=== PATIENT | male | born 1935 | race Caucasian/White ===

== ENCOUNTER 2024-01-20 19:59 | Observation (INO) ==
--- NOTE | 2024-01-20 20:13 | Emergency Department Note ---
Impression & Plan Syncope and collapse ED Provider Note HISTORY OF PRESENT ILLNESS: Patient is an 88-year-old male presenting after syncopal episode. Patient reports he was at a meeting at the [facility] when he stood up and next thing he knew he woke up on the ground. He denies any chest pain, shortness of breath or lightheadedness prior to the syncopal episode. No reported seizure-like activity. On arrival to the ER, the patient denies any headache or changes in vision. Denies any numbness or tingling or weakness in his extremities. He denies any chest pain or shortness of breath. Patient is unsure if he struck his head but he does not remember his initial fall. He denies any anticoagulation use. Denies any DVT or PE history. Denies any history of cardiac stents. ROS: as above PHYSICAL EXAM: Constitutional: Patient appears in no acute distress. HENT: Head: Normocephalic and atraumatic. Eyes: EOMI, PERRL Mouth/Throat: Mucous membranes moist. Neck: Trachea midline. Neck supple. No midline cervical spine tenderness to palpation. Cardiovascular: RRR, No murmurs, rubs or gallops. Intact distal pulses. Pulmonary/Chest: No respiratory distress. Breath sounds clear and equal bilaterally. No wheezes or rales. Abdominal: Abdomen soft, no tenderness, rebound or guarding. Musculoskeletal: No edema, tenderness or deformity noted. Skin: Warm and dry. No rash, erythema, pallor or cyanosis Psychiatric: Appropriate mood and affect for situation. Neurological: Alert and keenly responsive. CN II-XII grossly intact, moving all extremities equally and fully. MDM: - Vitals signs stable - History obtained via patient. History as above. - Chronic conditions affecting care: prostate cancer - Differential diagnoses include, but are not limited to: syncope; dysrhythmia; CVA; intracranial hemorrhage; ACS; electrolyte abnormality - Order placed for continuous cardiac monitoring. At this time, monitor showed rate of 92 bpm with normal sinus rhythm, per my interpretation. - External medical records reviewed. - EKG interpreted by myself showed normal sinus rhythm. Rate 78 bpm. Noted to have a prolonged QT at 448. No acute ischemic changes. - Laboratory workup interpreted by myself showed leukocytosis (WBC 11.88); stable electrolytes; normal troponin - CXR negative for pneumonia, per my interpretation - CT head wo contrast negative for acute pathology - CT cervical spine wo contrast negative for acute pathology - Viral respiratory panel negative. - Discussed results with patient and family. History of presenting illness is significantly concerning for possible cardiac source of syncope. Patient had no prodromal symptoms. - Discussion was had with case management specialist about patient's case and need for admission - Hospitalist consulted for admission - Patient admitted to [facility] Hospitalist service for further evaluation and management. ASSESSMENT AND PLAN: Diagnosis: syncope and collapse Plan: admit Past Med/Surg History Medical History (Updated 01/20/24 @ 22:48 by Ashli Rodriguez MD) Prostate cancer Surgical History S/P knee surgery Family History Father Heart disease Social History Smoking Status: Former smoker Tobacco Type: Cigarettes Hx Alcohol Use: Yes marital status: current occupational status: retired Feels Safe at Home: Yes Allergies Allergies Allergy/AdvReac Type Severity Reaction Status Date / Time enalapril AdvReac Severe Wheezing Unverified 01/22/20 10:36 Home Meds Home Medications Medication Instructions Recorded Confirmed multivitamin 1 tab PO QAM 01/22/20 01/20/24 cholecalciferol (vitamin D3) 50 50 mcg PO QAM 01/20/24 01/20/24 mcg (2,000 unit) tablet (Vitamin D3) donepezil 10 mg tablet 10 mg PO HS 01/20/24 01/20/24 rosuvastatin 40 mg tablet 40 mg PO QAM 01/20/24 01/20/24 Results & Data (ED) Vital Signs Vital Signs - 24 hr 01/20/24 20:22 01/20/24 20:30 01/20/24 20:34 Temperature Temperature Source Pulse Rate 81 80 Pulse Rate from SpO2 Sensor 81 Respiratory Rate 25 H 20 Respiratory Effort / Characteristics Respiratory Depth Respiratory Pattern Blood Pressure 140/74 Blood Pressure Mean 102 Pulse Oximetry 92 Oxygen Delivery Method Sepsis Recent Fever Within 48 Hours Sepsis New/Unexplained Change in Mental Status Sepsis Action Taken by Nursing 01/20/24 20:34 01/20/24 20:35 01/20/24 20:44 Temperature 36.5 C Temperature Source Oral Pulse Rate 81 81 Pulse Rate from SpO2 Sensor 78 Respiratory Rate 24 24 Respiratory Effort / Characteristics Non-Labored Spontaneous Respiratory Depth Normal Respiratory Pattern Regular Blood Pressure 140/74 Blood Pressure Mean 96 Pulse Oximetry 97 97 96 Oxygen Delivery Method Room Air Room Air Sepsis Recent Fever Within 48 Hours No Sepsis New/Unexplained Change in Mental Status No Sepsis Action Taken by Nursing No Action Required 01/20/24 21:04 01/20/24 21:37 Temperature Temperature Source Pulse Rate 84 92 H Pulse Rate from SpO2 Sensor 77 Respiratory Rate 22 Respiratory Effort / Characteristics Respiratory Depth Respiratory Pattern Blood Pressure Blood Pressure Mean Pulse Oximetry 98 98 Oxygen Delivery Method Room Air Sepsis Recent Fever Within 48 Hours Sepsis New/Unexplained Change in Mental Status Sepsis Action Taken by Nursing Laboratory Data 01/20/24 20:16 01/20/24 20:16 Lab Results 01/20/24 01/20/24 Range/Units 20:16 20:25 WBC 11.88 H (4.8-10.8) K/ul RBC 4.53 L (4.70-6.10) M/uL Hgb 14.0 (14.0-18.0) g/dl Hct 41.6 L (42.0-52.0) % MCV 91.8 (80.0-100.0) fL MCH 30.9 (25.0-34.0) pg MCHC 33.7 (32.0-36.0) g/dL RDW Std Deviation 44.6 (36.4-46.3) fL RDW Coeff of Alf 13.2 (11.5-14.5) % Plt Count 195 (130-400) K/uL MPV 8.9 L (9.4-12.4) fL Immature Gran % (Auto) 0.4 % Neut % (Auto) 83.1 % Lymph % (Auto) 6.6 % Becker % (Auto) 7.8 % Eos % (Auto) 1.8 % Baso % (Auto) 0.3 % Neut # (Auto) 9.88 H (1.40-6.50) K/uL Lymph # (Auto) 0.78 L (1.20-3.40) K/uL Becker # (Auto) 0.93 H (0.11-0.59) K/uL Eos # (Auto) 0.21 (0.00-0.50) K/uL Baso # (Auto) 0.03 (0.00-0.20) K/uL Immature Gran # (Auto) 0.05 (0.01-0.20) K/uL PT 10.9 (9.0-12.0) Seconds INR 1.0 (0.9-1.1) Sodium 138 (136-145) mmol/L Potassium 4.3 (3.5-5.1) mmol/L Chloride 104 (98-107) mmol/L Carbon Dioxide 23 (21-32) mmol/L Anion Gap 11 (3-11) BUN 29 H (6-23) mg/dl Creatinine 1.40 (0.6-1.4) mg/dl Est Cr Clr Drug Dosing 37.9 ml/min Est GFR ( Amer) 51.6 ml/min Est GFR (Non-Af Amer) 44.5 ml/min BUN/Creatinine Ratio 20.7 H (10-20) Glucose 129 H (70-99(Fasting)) mg/dl Calcium 9.8 (8.6-10.3) mg/dl Magnesium 2.3 (1.7-2.4) mg/dl Total Bilirubin 0.4 (0.2-1.0) mg/dl AST 32 (13-39) U/L ALT 29 (7-52) U/L Alkaline Phosphatase 37 (34-104) U/L Troponin I High Sens 12.7 (0-20) pg/ml Total Protein 7.8 (6.0-8.3) gm/dl Albumin 4.6 (3.4-5.0) gm/dl Globulin 3.2 (2.5-4.0) gm/dl Albumin/Globulin Ratio 1.4 (0.9-2) Adenovirus (PCR) Not Detected (NotDetected) B. pertussis DNA (PCR) Not Detected (NotDetected) B.parapertussis DNA PCR Not Detected (NotDetected) C. pneumoniae DNA (PCR) Not Detected (NotDetected) Coronavirus OC43 (PCR) Not Detected (NotDetected) Coronavirus HKU1 (PCR) Not Detected (NotDetected) Coronavirus 229E (PCR) Not Detected (NotDetected) SARS-CoV-2 (PCR) Not Detected (NotDetected) Coronavirus NL63 (PCR) Not Detected (NotDetected) Human Metapneumovir PCR Not Detected (NotDetected) Influenza Type A (PCR) Not Detected (NotDetected) Influenza Type B (PCR) Not Detected (NotDetected) M. pneumoniae (PCR) Not Detected (NotDetected) Parainfluenza 1 (PCR) Not Detected (NotDetected) Parainfluenza 2 (PCR) Not Detected (NotDetected) Parainfluenza 3 (PCR) Not Detected (NotDetected) Parainfluenza 4 (PCR) Not Detected (NotDetected) RSV (PCR) Not Detected (NotDetected) Entero/Rhino (PCR) Not Detected (NotDetected) Administered Medications Discontinued Medications Ondansetron HCl (Ondansetron Inj 2 Mg/Ml 2 Ml Vial) 4 mg IV NOW STA Stop: 01/20/24 20:21 Last Admin: 01/20/24 20:31 Dose: 4 mg Documented By: [facility] Data Radiologist's Impression: Head CT 01/20/24 20:01 Exam(s): CT HEAD Without Contrast EXAM: CT Head Without Intravenous Contrast CLINICAL HISTORY: syncope. TECHNIQUE: Axial computed tomography images of the head/brain without intravenous contrast. CTDI is 38.17 mGy and DLP is 624.41 mGy-cm. Automated exposure control was utilized for the study. A dose lowering technique was utilized adhering to the principles of ALARA. COMPARISON: No relevant prior studies available. FINDINGS: Brain: Areas of decreased attenuation in the deep cerebral white matter are consistent with small vessel ischemic/degenerative changes. The cerebral and cerebellar sulci are prominent consistent with brain atrophy. No hemorrhage. No significant mass effect. No evidence for cortical infarct. Ventricles: Unremarkable. No ventriculomegaly. Bones/joints: Unremarkable. No acute fracture. Soft tissues: No significant overlying acute traumatic soft tissue abnormality. No radiopaque foreign body. Vasculature: Atherosclerotic disease. Sinuses: Unremarkable as visualized. No acute sinusitis. Mastoid air cells: Unremarkable as visualized. No mastoid effusion. IMPRESSION: 1. No acute intracranial process identified. 2. Small vessel ischemic/degenerative changes. 3. Cerebral and cerebellar atrophy. Electronically signed by: Иван Bowles MD 01/20/24 21:[address] 01/20/24 20:11 Exam(s): CT C SPINE EXAM: CT Cervical Spine Without Intravenous Contrast CLINICAL HISTORY: syncope. TECHNIQUE: Axial computed tomography images of the cervical spine without intravenous contrast. CTDI is 26.28 mGy and DLP is 522.63 mGy-cm. Automated exposure control was utilized for the study. A dose lowering technique was utilized adhering to the principles of ALARA. COMPARISON: No relevant prior studies available. FINDINGS: Vertebrae: The vertebral bodies are intact without acute traumatic injury. No anterolisthesis or retrolisthesis noted. The pedicles, facet joints, spinous processes and transverse processes are intact. Heterotopic calcification dorsal to the T1 spinous process is a presumed chronic finding. 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 Diffuse facet hypertrophic changes noted bilaterally. Discs/spinal canal/neural foramina: Disc space narrowing with marginal hypertrophic osteophyte changes noted throughout the cervical spine, most prominent from C4-C5 through C6-C7. Partial ankylosis of the C4-C5 disc suspected. Osseous canal narrowing in regions of posterior marginal osteophytes is incidental and chronic. No acute osseous canal narrowing suspected. Multilevel osseous neural foraminal encroachment at several levels, right side greater than left. Soft tissues: Unremarkable. IMPRESSION: No acute osseous traumatic injury or significant abnormal alignment involving the cervical spine. 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 Electronically signed by: Иван Bowles MD 01/20/24 21:16 PM Discharge Plan Visit Data Chief Complaint: Syncope Stated Complaint: SINGLE SYNCOPAL EPISODE/NAUSEA/DIZZY PRIOR ED Provider: Ashli Rodriguez Discharge Problem: Syncope and collapse Forms Stand Alone Forms: My [facility] [place] Prescriptions Prescriptions: No Action multivitamin Tablet 1 tab PO QAM rosuvastatin 40 mg tablet 40 mg PO QAM donepezil 10 mg tablet 10 mg PO HS cholecalciferol (vitamin D3) [Vitamin D3] 50 mcg (2,000 unit) Tablet 50 mcg PO QAM Referrals Referrals: Gideon Flores MD [Primary Care Provider] -
[2024-01-20] MEDS: ONDANSETRON INJ 2 MG/ML 2 ML VIAL IV STA (20:31)
[2024-01-20 20:32] LABS: Basophils # (auto) 0.03 K/uL (0.00-0.20); Basophils % (auto) 0.3 %; Eosinophils # (auto) 0.21 K/uL (0.00-0.50); Eosinophils % (auto) 1.8 %; Hematocrit (blood only) 41.6 % (42.0-52.0); Immature Granulocytes # (auto) 0.05 K/uL (0.01-0.20); Immature Granulocytes % (auto) 0.4 %; Lymphocytes # (auto) 0.78 K/uL (1.20-3.40); Lymphocytes % (auto) 6.6 %; Mean Corpuscular Hemoglobin 30.9 pg (25.0-34.0); Mean Corpuscular Hgb Conc 33.7 g/dL (32.0-36.0); Mean Corpuscular Volume 91.8 fL (80.0-100.0); Mean Platelet Volume 8.9 fL (9.4-12.4); Monocytes # (auto) 0.93 K/uL (0.11-0.59); Monocytes % (auto) 7.8 %; Neutrophils # (auto) 9.88 K/uL (1.40-6.50); Neutrophils % (auto) 83.1 %; Platelet Count 195 K/uL (130-400); RDW Coefficient of Variation 13.2 % (11.5-14.5); RDW Standard Deviation 44.6 fL (36.4-46.3); Red Blood Count 4.53 M/uL (4.70-6.10); White Blood Count 11.88 K/ul (4.8-10.8)
[2024-01-20 20:50] LABS: Albumin Globulin Ratio 1.4 (0.9-2); Albumin Level 4.6 gm/dl (3.4-5.0); BUN Creatinine Ratio 20.7 (10-20); Bilirubin,Total 0.4 mg/dl (0.2-1.0); Calcium 9.8 mg/dl (8.6-10.3); Creatinine Clr Calc Pharmacy 37.9 ml/min; Est GFR (African American) 51.6 ml/min; Est GFR (Non-African American) 44.5 ml/min; Globulin 3.2 gm/dl (2.5-4.0); Magnesium 2.3 mg/dl (1.7-2.4); Potassium 4.3 mmol/L (3.5-5.1); Total Protein 7.8 gm/dl (6.0-8.3)
[2024-01-20 20:56] LABS: Troponin I High Sensitivity 12.7 pg/ml (0-20)
[2024-01-20 20:59] LABS: Prothrombin Time 10.9 Seconds (9.0-12.0)
--- NOTE | 2024-01-20 21:12 | CT Scan Report ---
Exam(s): CT HEAD Without Contrast EXAM: CT Head Without Intravenous Contrast CLINICAL HISTORY: syncope. TECHNIQUE: Axial computed tomography images of the head/brain without intravenous contrast. CTDI is 38.17 mGy and DLP is 624.41 mGy-cm. Automated exposure control was utilized for the study. A dose lowering technique was utilized adhering to the principles of ALARA. COMPARISON: No relevant prior studies available. FINDINGS: Brain: Areas of decreased attenuation in the deep cerebral white matter are consistent with small vessel ischemic/degenerative changes. The cerebral and cerebellar sulci are prominent consistent with brain atrophy. No hemorrhage. No significant mass effect. No evidence for cortical infarct. Ventricles: Unremarkable. No ventriculomegaly. Bones/joints: Unremarkable. No acute fracture. Soft tissues: No significant overlying acute traumatic soft tissue abnormality. No radiopaque foreign body. Vasculature: Atherosclerotic disease. Sinuses: Unremarkable as visualized. No acute sinusitis. Mastoid air cells: Unremarkable as visualized. No mastoid effusion. IMPRESSION: 1. No acute intracranial process identified. 2. Small vessel ischemic/degenerative changes. 3. Cerebral and cerebellar atrophy. Electronically signed by: Иван Bowles MD 01/20/24 21:11 PM
--- NOTE | 2024-01-20 21:17 | CT Scan Report ---
Exam(s): CT C SPINE EXAM: CT Cervical Spine Without Intravenous Contrast CLINICAL HISTORY: syncope. TECHNIQUE: Axial computed tomography images of the cervical spine without intravenous contrast. CTDI is 26.28 mGy and DLP is 522.63 mGy-cm. Automated exposure control was utilized for the study. A dose lowering technique was utilized adhering to the principles of ALARA. COMPARISON: No relevant prior studies available. FINDINGS: Vertebrae: The vertebral bodies are intact without acute traumatic injury. No anterolisthesis or retrolisthesis noted. The pedicles, facet joints, spinous processes and transverse processes are intact. Heterotopic calcification dorsal to the T1 spinous process is a presumed chronic finding. 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 Diffuse facet hypertrophic changes noted bilaterally. Discs/spinal canal/neural foramina: Disc space narrowing with marginal hypertrophic osteophyte changes noted throughout the cervical spine, most prominent from C4-C5 through C6-C7. Partial ankylosis of the C4-C5 disc suspected. Osseous canal narrowing in regions of posterior marginal osteophytes is incidental and chronic. No acute osseous canal narrowing suspected. Multilevel osseous neural foraminal encroachment at several levels, right side greater than left. Soft tissues: Unremarkable. IMPRESSION: No acute osseous traumatic injury or significant abnormal alignment involving the cervical spine. 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 Electronically signed by: Иван Bowles MD 01/20/24 21:16 PM
[2024-01-20 21:31] LABS: Adenovirus PCR Not Detected (NotDetected); Bordetella parapertussis PCR Not Detected (NotDetected); Bordetella pertussis PCR Not Detected (NotDetected); Chlamydia pneumoniae PCR Not Detected (NotDetected); Coronavirus 229E PCR Not Detected (NotDetected); Coronavirus CoV-2 (COVID19)PCR Not Detected (NotDetected); Coronavirus HKU1 PCR Not Detected (NotDetected); Coronavirus NL63 PCR Not Detected (NotDetected); Coronavirus OC43PCR Not Detected (NotDetected); Human Metapneumovirus PCR Not Detected (NotDetected); Influenza A PCR Not Detected (NotDetected); Influenza B PCR Not Detected (NotDetected); Mycoplasma pneumoniae PCR Not Detected (NotDetected); Parainfluenza Virus 1 PCR Not Detected (NotDetected); Parainfluenza Virus 2 PCR Not Detected (NotDetected); Parainfluenza Virus 3 PCR Not Detected (NotDetected); Parainfluenza Virus 4 PCR Not Detected (NotDetected); Respiratory Syncytial VirusPCR Not Detected (NotDetected); Rhinovirus/Enterovirus PCR Not Detected (NotDetected)
--- NOTE | 2024-01-20 23:58 | History & Physical Report ---
Date of Service January 20, 2024 Assessment & Plan (1) Syncope and collapse: Plan: Suspect orthostatic syncope. Event occurred after patient stood up and walked to the counter. Patient's and son both confirm that patient has a history of orthostatic symptoms. EKG with PACs and PVCs, some non-specific changes -Observation to medical -Check 2D echo -Check orthostatic VS -Frequent orientation (2) Alzheimer disease: Plan: Chronic -Continue Aricept -Frequent orientation History of Present Illness Chief Complaint: Syncope Primary Care Provider: Gideon Flores MD Ronny Angelo is a pleasant 88yo male with history of Alzheimer's dementia presenting from home after a syncopal event. Patient got up from the sofa and carried his food container into the kitchen. He set the container on the counter and then became dizzy and fell face first into his food. He then fell onto the ground. He did not fully lose consciousness. No report of chest pain, palpitations, shortness of breath. No neurologic deficits. No additional complaints at this time. His states that patient often becomes dizzy with positional change but has never passed out. In the ER patient is afebrile, HD stable and non-toxic in appearance ER Course: Zofran Allergies Allergy/AdvReac Type Severity Reaction Status Date / Time enalapril AdvReac Severe Wheezing Unverified 01/22/20 10:36 Home Medications Medication Instructions Recorded Confirmed Type multivitamin 1 tab PO QAM 01/22/20 01/20/24 History cholecalciferol (vitamin D3) 50 50 mcg PO QAM 01/20/24 01/20/24 History mcg (2,000 unit) tablet (Vitamin D3) donepezil 10 mg tablet 10 mg PO HS 01/20/24 01/20/24 History rosuvastatin 40 mg tablet 40 mg PO QAM 01/20/24 01/20/24 History Past Med/Surg History Medical History (Updated 01/21/24 @ 04:33 by Selam Mccall DO) Prostate cancer Surgical History S/P knee surgery Family History Father Heart disease Social History Smoking Status: Former smoker Tobacco Type: Cigarettes Smoking End Date: over 50 years ago; Hx Alcohol Use: Yes Alcohol type: beer Hx Substance Use: No Preferred Language: Croatian Communication Ability: Effective 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 Beliefs That Will Affect Care: None marital status: Current Living Situation: Spouse Current Living Situation Comment: [facility] current occupational status: retired Other Information That Helps Us Care for You: No Feels Safe at Home: Yes Safety Concerns: Feels Safe At This Time Assistive Devices: Glasses and Hearing Aid - Bilateral Review of Systems Review of Systems: All systems reviewed & are unremarkable except as noted in HPI & below Physical Exam Physical Exam: General: patient resting comfortably, NAD, non-toxic in appearance, AA&O to self Skin: warm, dry, intact, no rashes or lesions HEENT: NC/AT, PERRL, EOMI, anicteric sclera, conjunctiva without injection, external ear normal to inspection and nontender, nares patent, moist mucus membranes, dentition intact, no oropharyngeal lesions, neck supple, trachea midline, no LAD, no thyromegaly, no JVD Heart: +S1/S2, regular with ectopy, no m/r/g Lungs: equal air entry bilaterally, no rales/rhonchi/wheezes Abd: +BS, soft, NT/ND, no masses/organomegaly/ascites Ext: warm, 2+ pulses in UE/LE bilaterally, no clubbing/cyanosis or edema Neuro: nonfocal, patient AA&O to self, speech intact, no facial droop, moving all extremities on command with equal strength 5/5 Results & Data Results & Data Vital Signs (Past 12 Hours) Vital Signs Temp Pulse Pulse Resp BP BP Pulse Ox 01/20/24 23:39 115/92 01/20/24 23:35 85 24 92 01/20/24 21:37 92 H 98 01/20/24 21:04 84 22 98 01/20/24 20:44 96 01/20/24 20:35 36.5 C 81 24 140/74 97 01/20/24 20:34 81 24 97 01/20/24 20:34 140/74 01/20/24 20:30 80 20 92 01/20/24 20:22 81 25 H 01/20/24 20:01 74 O2 Del Method 01/20/24 23:39 01/20/24 23:35 Room Air 01/20/24 21:37 Room Air 01/20/24 21:04 01/20/24 20:44 Room Air 01/20/24 20:35 Room Air 01/20/24 20:34 01/20/24 20:34 01/20/24 20:30 01/20/24 20:22 01/20/24 20:01 Laboratory Results Laboratory Results WBC 11.88 K/ul (4.8-10.8) H 01/20/24 20:16 RBC 4.53 M/uL (4.70-6.10) L 01/20/24 20:16 Hgb 14.0 g/dl (14.0-18.0) 01/20/24 20:16 Hct 41.6 % (42.0-52.0) L 01/20/24 20:16 MCV 91.8 fL (80.0-100.0) 01/20/24 20:16 MCH 30.9 pg (25.0-34.0) 01/20/24 20:16 MCHC 33.7 g/dL (32.0-36.0) 01/20/24 20:16 RDW Std Deviation 44.6 fL (36.4-46.3) 01/20/24 20:16 RDW Coeff of Alf 13.2 % (11.5-14.5) 01/20/24 20:16 Plt Count 195 K/uL (130-400) 01/20/24 20:16 MPV 8.9 fL (9.4-12.4) L 01/20/24 20:16 Immature Gran % (Auto) 0.4 % 01/20/24 20:16 Neut % (Auto) 83.1 % 01/20/24 20:16 Lymph % (Auto) 6.6 % 01/20/24 20:16 [place] % (Auto) 7.8 % 01/20/24 20:16 Eos % (Auto) 1.8 % 01/20/24 20:16 Baso % (Auto) 0.3 % 01/20/24 20:16 Neut # (Auto) 9.88 K/uL (1.40-6.50) H 01/20/24 20:16 Lymph # (Auto) 0.78 K/uL (1.20-3.40) L 01/20/24 20:16 [place] # (Auto) 0.93 K/uL (0.11-0.59) H 01/20/24 20:16 Eos # (Auto) 0.21 K/uL (0.00-0.50) 01/20/24 20:16 Baso # (Auto) 0.03 K/uL (0.00-0.20) 01/20/24 20:16 Immature Gran # (Auto) 0.05 K/uL (0.01-0.20) 01/20/24 20:16 PT 10.9 Seconds (9.0-12.0) 01/20/24 20:16 INR 1.0 (0.9-1.1) 01/20/24 20:16 Sodium 138 mmol/L (136-145) 01/20/24 20:16 Potassium 4.3 mmol/L (3.5-5.1) 01/20/24 20:16 Chloride 104 mmol/L (98-107) 01/20/24 20:16 Carbon Dioxide 23 mmol/L (21-32) 01/20/24 20:16 Anion Gap 11 (3-11) 01/20/24 20:16 BUN 29 mg/dl (6-23) H 01/20/24 20:16 Creatinine 1.40 mg/dl (0.6-1.4) 01/20/24 20:16 Est Cr Clr Drug Dosing 37.9 ml/min 01/20/24 20:16 Est GFR ( Amer) 51.6 ml/min 01/20/24 20:16 Est GFR (Non-Af Amer) 44.5 ml/min 01/20/24 20:16 BUN/Creatinine Ratio 20.7 (10-20) H 01/20/24 20:16 Glucose 129 mg/dl (70-99(Fasting)) H 01/20/24 20:16 Calcium 9.8 mg/dl (8.6-10.3) 01/20/24 20:16 Magnesium 2.3 mg/dl (1.7-2.4) 01/20/24 20:16 Total Bilirubin 0.4 mg/dl (0.2-1.0) 01/20/24 20:16 AST 32 U/L (13-39) 01/20/24 20:16 ALT 29 U/L (7-52) 01/20/24 20:16 Alkaline Phosphatase 37 U/L (34-104) 01/20/24 20:16 Troponin I High Sens 12.7 pg/ml (0-20) 01/20/24 20:16 Total Protein 7.8 gm/dl (6.0-8.3) 01/20/24 20:16 Albumin 4.6 gm/dl (3.4-5.0) 01/20/24 20:16 Globulin 3.2 gm/dl (2.5-4.0) 01/20/24 20:16 Albumin/Globulin Ratio 1.4 (0.9-2) 01/20/24 20:16 Adenovirus (PCR) Not Detected (NotDetected) 01/20/24 20:25 B. pertussis DNA (PCR) Not Detected (NotDetected) 01/20/24 20:25 B.parapertussis DNA PCR Not Detected (NotDetected) 01/20/24 20:25 C. pneumoniae DNA (PCR) Not Detected (NotDetected) 01/20/24 20:25 Coronavirus OC43 (PCR) Not Detected (NotDetected) 01/20/24 20:25 Coronavirus HKU1 (PCR) Not Detected (NotDetected) 01/20/24 20:25 Coronavirus 229E (PCR) Not Detected (NotDetected) 01/20/24 20:25 SARS-CoV-2 (PCR) Not Detected (NotDetected) 01/20/24 20:25 Coronavirus NL63 (PCR) Not Detected (NotDetected) 01/20/24 20:25 Human Metapneumovir PCR Not Detected (NotDetected) 01/20/24 20:25 Influenza Type A (PCR) Not Detected (NotDetected) 01/20/24 20:25 Influenza Type B (PCR) Not Detected (NotDetected) 01/20/24 20:25 M. pneumoniae (PCR) Not Detected (NotDetected) 01/20/24 20:25 Parainfluenza 1 (PCR) Not Detected (NotDetected) 01/20/24 20:25 Parainfluenza 2 (PCR) Not Detected (NotDetected) 01/20/24 20:25 Parainfluenza 3 (PCR) Not Detected (NotDetected) 01/20/24 20:25 Parainfluenza 4 (PCR) Not Detected (NotDetected) 01/20/24 20:25 RSV (PCR) Not Detected (NotDetected) 01/20/24 20:25 Entero/Rhino (PCR) Not Detected (NotDetected) 01/20/24 20:[address] 01/20/24 20:01 Exam(s): CT HEAD Without Contrast EXAM: CT Head Without Intravenous Contrast CLINICAL HISTORY: syncope. TECHNIQUE: Axial computed tomography images of the head/brain without intravenous contrast. CTDI is 38.17 mGy and DLP is 624.41 mGy-cm. Automated exposure control was utilized for the study. A dose lowering technique was utilized adhering to the principles of ALARA. COMPARISON: No relevant prior studies available. FINDINGS: Brain: Areas of decreased attenuation in the deep cerebral white matter are consistent with small vessel ischemic/degenerative changes. The cerebral and cerebellar sulci are prominent consistent with brain atrophy. No hemorrhage. No significant mass effect. No evidence for cortical infarct. Ventricles: Unremarkable. No ventriculomegaly. Bones/joints: Unremarkable. No acute fracture. Soft tissues: No significant overlying acute traumatic soft tissue abnormality. No radiopaque foreign body. Vasculature: Atherosclerotic disease. Sinuses: Unremarkable as visualized. No acute sinusitis. Mastoid air cells: Unremarkable as visualized. No mastoid effusion. IMPRESSION: 1. No acute intracranial process identified. 2. Small vessel ischemic/degenerative changes. 3. Cerebral and cerebellar atrophy. Electronically signed by: Иван Bowles MD 01/20/24 21:[address] 01/20/24 20:11 Exam(s): CT C SPINE EXAM: CT Cervical Spine Without Intravenous Contrast CLINICAL HISTORY: syncope. TECHNIQUE: Axial computed tomography images of the cervical spine without intravenous contrast. CTDI is 26.28 mGy and DLP is 522.63 mGy-cm. Automated exposure control was utilized for the study. A dose lowering technique was utilized adhering to the principles of ALARA. COMPARISON: No relevant prior studies available. FINDINGS: Vertebrae: The vertebral bodies are intact without acute traumatic injury. No anterolisthesis or retrolisthesis noted. The pedicles, facet joints, spinous processes and transverse processes are intact. Heterotopic calcification dorsal to the T1 spinous process is a presumed chronic finding. 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 Diffuse facet hypertrophic changes noted bilaterally. Discs/spinal canal/neural foramina: Disc space narrowing with marginal hypertrophic osteophyte changes noted throughout the cervical spine, most prominent from C4-C5 through C6-C7. Partial ankylosis of the C4-C5 disc suspected. Osseous canal narrowing in regions of posterior marginal osteophytes is incidental and chronic. No acute osseous canal narrowing suspected. Multilevel osseous neural foraminal encroachment at several levels, right side greater than left. Soft tissues: Unremarkable. IMPRESSION: No acute osseous traumatic injury or significant abnormal alignment involving the cervical spine. 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 Electronically signed by: Иван Bowles MD 01/20/24 21:16 PM ECG Additional Comments: EKG with sinus rhythm at 78bpm, PACs and PVCs, prolonged QT Code Status & VTE Plan VTE Prophylaxis Plan VTE Prophylaxis will be ordered: Yes PG Care Time/CCT Total # of Minutes Spent Total Time Spent with Patient: Total time spent is greater than 50% in coordination of care (as documented) at patient's floor/unit and/or counseling patient: Coding Level of Care Code 18780 INT INP/OBS CARE 2/55MIN Diagnoses Syncope and collapse R55 Alzheimer disease G30.9; F02.80
[2024-01-21] MEDS ORDERED: ACETAMINOPHEN 325 MG TAB PO PRN (01:43)
[2024-01-21] MEDS: LACTATED RINGER'S 1,000 ML IV SCH (01:58)
--- NOTE | 2024-01-21 07:01 | Ultrasound Report ---
US carotid doppler BI CLINICAL HISTORY: 88 years-old Male with syncope. COMPARISON: 02/17/2020 TECHNIQUE: Multiple real time sonographic images of the carotid bifurcations were obtained assessing jones scale, color Doppler and spectral wave form appearance FINDINGS: RIGHT CAROTID: The peak systolic velocity measured in the right ICA 89 cm/sec. The end diastolic ve locity measured 21 cm/sec. The ICA to CCA ratio measured 0.9 which correlates with a stenosis of 0-5 0%. There is moderate atherosclerosis. LEFT CAROTID: The peak systolic velocity left ICA is 63 cm/sec. The end diastolic velocity measured 12 cm/sec. The ICA to CCA ratio measured 0.5 which correlates with a stenosis of 0-50%. There is mo derate atherosclerosis. There is normal antegrade vertebral flow bilaterally. IMPRESSION: 1. Atherosclerosis without hemodynamically significant stenosis. 2. Normal antegrade vertebral flow bilaterally. ACT 112: Negative or not required by law. The above report was generated using voice recognition software. It may contain grammatical, syntax o r spelling errors. Electronically signed by: Subhash Collado M.D. 01/21/2024 6:58 AM
--- NOTE | 2024-01-21 07:15 | Electrocardiogram Report ---
Test Reason : Blood Pressure : / mmHG Vent. Rate : 078 BPM Atrial Rate : 088 BPM P-R Int : 180 ms QRS Dur : 078 ms QT Int : 448 ms P-R-T Axes : 060 054 037 degrees QTc Int : 510 ms Sinus rhythm with occasional Premature ventricular complexes and Premature atrial complexes Prolonged QT Abnormal ECG When compared with ECG of 22-JAN-2020 09:23, Premature ventricular complexes are now Present Nonspecific T wave abnormality now evident in Inferior leads Confirmed by Umang Bergman ([id number]) on 01/21/2024 7:14:32 AM Referred By: REFERRED SELF Confirmed By:Scotty Bergman
[2024-01-21 07:27] LABS: Hemoglobin 13.3 g/dl (14.0-18.0); Mean Corpuscular Hemoglobin 30.6 pg (25.0-34.0); Mean Corpuscular Hgb Conc 34.1 g/dL (32.0-36.0); Mean Corpuscular Volume 89.9 fL (80.0-100.0); Mean Platelet Volume 9.2 fL (9.4-12.4); Platelet Count 203 K/uL (130-400); RDW Coefficient of Variation 13.2 % (11.5-14.5); RDW Standard Deviation 43.8 fL (36.4-46.3); Red Blood Count 4.34 M/uL (4.70-6.10); White Blood Count 9.71 K/ul (4.8-10.8)
[2024-01-21 07:39] LABS: BUN Creatinine Ratio 27.5 (10-20); Creatinine Clr Calc Pharmacy 44.2 ml/min; Est GFR (African American) 62.2 ml/min; Est GFR (Non-African American) 53.7 ml/min; Potassium 3.8 mmol/L (3.5-5.1)
--- NOTE | 2024-01-21 08:03 | XRay Report ---
XR chest 1V portable HISTORY: 88 years-old Male syncope acute syncope COMPARISON: None TECHNIQUE: AP view of the chest FINDINGS: Cardiac silhouette is enlarged. Atherosclerosis of the aorta. No pneumothorax, pleural effusion, airs pace consolidation or pulmonary edema. Bones of the chest appear grossly intact. IMPRESSION: No acute process. ACT 112: Negative or not required by law. The above report was generated using voice recognition software. It may contain grammatical, syntax o r spelling errors. Electronically signed by: Subhash Collado M.D. 01/21/2024 8:01 AM
[2024-01-21] MEDS: ENOXAPARIN INJ 40 MG/0.4 ML SYR SQ SCH (08:30)
[2024-01-21] MEDS: ROSUVASTATIN CALCIUM 20 MG TAB PO SCH (08:30)
--- NOTE | 2024-01-21 12:25 | XCELERA ---
[id number] \\[id number]
[2024-01-21 12:42] LABS: Appearance Urine Clear (Clear); Bacteria Urine Automated None Seen (None Seen); Bilirubin Urine Negative (Negative); Blood Urine Negative (Negative); Cast Urine Automated 0-2 /lpf (0-2); Color Urine Yellow; Epithelial Cell Urine Auto 0-2 /hpf (0-2); Glucose Urine UA Negative (Negative); Ketones Urine Trace (Negative); Leukocyte Esterase Urine Negative (Negative); Nitrite Urine Negative (Negative); Protein Urine 1+ (Negative); Specific Gravity Urine 1.032 (1.000-1.030); Urobilinogen Urine Negative (Negative); WBC Urine Automated 0-5 /hpf (0-5); pH Urine 5.5 (4.5-7.5)
--- NOTE | 2024-01-21 13:08 | Discharge Summary ---
Date of Service January 21, 2024 Admission HPI Per Admitting Provider Ronny Angelo is a pleasant 88yo male with history of Alzheimer's dementia presenting from home after a syncopal event. Patient got up from the sofa and carried his food container into the kitchen. He set the container on the counter and then became dizzy and fell face first into his food. He then fell onto the ground. He did not fully lose consciousness. No report of chest pain, palpitations, shortness of breath. No neurologic deficits. No additional complaints at this time. His states that patient often becomes dizzy with positional change but has never passed out. In the ER patient is afebrile, HD stable and non-toxic in appearance ER Course: Zofran Admission Exam Per Admitting Provider General: patient resting comfortably, NAD, non-toxic in appearance, AA&O to self Skin: warm, dry, intact, no rashes or lesions HEENT: NC/AT, PERRL, EOMI, anicteric sclera, conjunctiva without injection, external ear normal to inspection and nontender, nares patent, moist mucus membranes, dentition intact, no oropharyngeal lesions, neck supple, trachea midline, no LAD, no thyromegaly, no JVD Heart: +S1/S2, regular with ectopy, no m/r/g Lungs: equal air entry bilaterally, no rales/rhonchi/wheezes Abd: +BS, soft, NT/ND, no masses/organomegaly/ascites Ext: warm, 2+ pulses in UE/LE bilaterally, no clubbing/cyanosis or edema Neuro: nonfocal, patient AA&O to self, speech intact, no facial droop, moving all extremities on command with equal strength 5/5 Principal Diagnosis Syncope and collapse, secondary to orthostatic hypotension Discharge Exam General: No acute distress, nondiaphoretic, well-developed, well-nourished. Skin: The skin was without rashes, erythema, edema, or bruising. Cardiac: Regular rate and rhythm without murmurs gallops or rubs. Pulm: Clear to auscultation bilaterally without wheezes, rales or rhonchi. No retractions or accessory muscle use. Abdominal: Positive bowel sounds x 4. Soft, nontender, without masses or organomegaly. No guarding or rebound tenderness. Neuro: A&O x3. No focal neurological deficits. Discharge Data Allergies Allergy/AdvReac Type Severity Reaction Status Date / Time enalapril AdvReac Severe Wheezing Unverified 01/22/20 10:36 Consultations 01/20/24 22:48 ED Decision to Admit Stat Ordered Studies 01/20/24 20:01 CT head/brain wo con Stat IMPRESSION: 1. No acute intracranial process identified. 2. Small vessel ischemic/degenerative changes. 3. Cerebral and cerebellar atrophy. 01/20/24 20:11 CT cervical spine wo con Stat IMPRESSION: No acute osseous traumatic injury or significant abnormal alignment involving the cervical spine. 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 01/21/24 05:00 US carotid doppler BI Routine IMPRESSION: 1. Atherosclerosis without hemodynamically significant stenosis. 2. Normal antegrade vertebral flow bilaterally. 01/21/2024 07:16 Echocardiogram INTERPRETATION SUMMARY: 1. Left ventricular systolic function is normal. 2. Aortic valve sclerosis mild, without significant aortic valvular stenosis. 3. There is moderate mitral annular calcification. 4. There is moderate tricuspid regurgitation. 5. Right ventricular systolic pressure is elevated at 40-50 mmHg. 6. Left ventricular ejection fraction= 60-65%. Hospital Course (1) Syncope and collapse: - Patient presented after syncopal episode where patient stood up and walked to the kitchen counter. - Patient's and son both confirm that patient has a history of orthostatic hypotension. - Son reports he has an episode of syncope from orthostatic hypotension about once every 8 to 10 years randomly, and is asymptomatic otherwise. - EKG with PACs and PVCs, some nonspecific changes - Head CT, CT cervical spine, bilateral carotid Doppler ultrasound, echocardiogram all show no acute processes. EF= 60 to 65%. - I suspect this episode occurred in setting of dehydration post-GI illness. Patient reports him and his have experienced diarrhea and some vomiting for couple days leading up to hospitalization. - I counseled the patient on the importance of drinking plenty of fluids, as well as getting up slowly from lying/sitting to standing. (2) Alzheimer disease: Chronic. Continue Aricept. Plan CODE STATUS: Full code Total Time Total Time Spent Total Time Spent (In Minutes): Greater than 30 minutes spent completing this discharge process including direct patient care, medication reconciliation, documentation, review of labs and images, and coordination of care. Discharge Plan Discharge Items Patient Disposition: Personal Half-Way Reason For Visit: SYNCOPE Discharge Diagnosis: Syncope and collapse, secondary to orthostatic hypotension Activity: Resume your previous activity Non-emergency contact: Primary Care Provider Call non-emergency contact if: you have any medication questions and your symptoms worsen Follow-up/Referrals: Gideon Flores MD [Primary Care Provider] - Diet: Regular Addtl Attending Provider Instructions: Mr. Angelo, Harry were admitted to the hospital for a syncopal episode with collapsing. You had a chest x-ray, head CT, and cervical spine CT all which showed no acute processes. You also had a carotid Doppler study, which showed some atherosclerosis without significant stenosis, and normal vertebral flow bilaterally. Additionally, you had an echocardiogram done which showed an ejection fraction of 60-65% (which is normal) and no structural heart abnormalities. Your laboratory testing, which includes an extensive viral workup, urinalysis, and electrolytes, were all normal. All of this to be said, your syncopal episode was most likely due to orthostatic hypotension. Orthostatic hypotension is low blood pressure when you stand up from sitting or lying down. This can cause symptoms including dizziness, lightheadedness, and blurry vision. It may also cause the symptoms of fainting and falling like you experienced. From talking with your son, Tremaine, it sounds like you have been dealing with episodes of orthostatic hypotension throughout your life. This episode specifically may have been brought on by dehydration in the setting of a GI bug, given the diarrhea and 1 episode of vomiting that you experienced prior to arriving at the hospital. Upon discharge from the hospital: * Continue your current medications as prescribed. * Drink plenty of fluids. * Change positions slowly from lying to standing. When getting out of bed, sit on the side of your bed with your legs down for at least 30 seconds before standing. This gives your body time to adjust to the position change. Please return to the hospital if you experience any of the following: Dizziness, lightheadedness, fainting, fever greater than 100.4, vomiting or diarrhea that does not stop, burning when you urinate, foul-smelling urine, shortness of breath, or chest pain. It was a pleasure taking care of you while you were in the hospital, Teagan Armstrong PA-C Pending Studies at Discharge: No Stand-Alone Forms: [facility] [employer], Smoking Cessation Skilled Items Patient informed of condition?: Yes DNR: No Discharge Level of Care: Other Communicable Disease: No Discharge Prognosis: Stable Lines: None Urinary Catheter: No Medications and DC Order Prescriptions: Continued multivitamin Tablet 1 tab PO QAM rosuvastatin 40 mg tablet 40 mg PO QAM donepezil 10 mg tablet 10 mg PO HS cholecalciferol (vitamin D3) [Vitamin D3] 50 mcg (2,000 unit) Tablet 50 mcg PO QAM Discharge Orders: Discharge Order (Routine); Ordered 01/21/24 Ordered By: Teagan Jimenez/Other Patient Handouts: Orthostatic Hypotension Admission Data Admit Date/Time: 01/20/24 23:58 Attending Provider: Elier Cruz Admit Provider: Selam Mccall Primary Care Provider: Gideon Flores Other Providers: Selam Mccall Other Interventions: Discharge Summary Assessment (RN) Last Done: 01/21/24 13:03 Supervising Physician Co-Signing Physician Notes The patient was not seen by me. The chart was reviewed. Case discussed with MICHELLE Wagner. Agree with assessment and plan. The patient is medically stable for discharge today, January 20 Coding Level of Care Code 90092 INP/OBS DISCH >30 MIN Diagnoses Syncope and collapse R55 Alzheimer disease G30.9; F02.80
[2024-01-21] MEDS ORDERED: DONEPEZIL HCL 10 MG TAB PO SCH (21:00)
== END 2024-01-21 14:42 | disposition home or self-care (01) ==
LOC: ED 19:59 → 3W 19:59 → SUATTDRO 23:58 → 3W 01-21 00:20